=== PATIENT | male | born 1975 | race Caucasian/White ===

== ENCOUNTER 2016-03-25 16:21 | Emergency (ER) | payer SELFPAY ==
[2016-03-25] MEDS ORDERED: ASPIRIN 81 MG TABLET, CHEWABLE PO ONE (16:39)
--- NOTE | 2016-03-25 16:39 | ER Document Report ---
ED Medical Screen (RME) - General Stated Complaint: CHEST PAIN Time seen by provider: 16:37 Mode of Arrival: Wheelchair Information source: Patient Notes: 40-year-old male presents to ED for chest pain starting about 350 substernal chest pain states pain was in his left hand but not now denies shortness of breath. Denies diaphoresis, fever, cough. They she has had 5 MIs in the past states she has 5 cardiac stents none recently. Pain gets sharp at time and has a lot of pressure. I have greeted and performed a rapid initial assessment of this patient. A comprehensive ED assessment and evaluation of the patient, analysis of test results and completion of medical decision making process will be conducted by an additional ED providers.
[2016-03-25 17:26] LABS: ABSOLUTE BASOPHILS # (AUTO) 0.1 10^3/uL (0.0-0.2); ABSOLUTE EOSINOPHILS # (AUTO) 0.1 10^3/uL (0.0-0.6); ABSOLUTE LYMPHOCYTES (AUTO) 2.4 10^3/uL (0.5-4.7); ABSOLUTE MONOCYTES (AUTO) 0.8 10^3/uL (0.1-1.4); ABSOLUTE NEUT (AUTO) 8.5 10^3/uL (1.7-8.2); BASOPHILS % (AUTO) 0.7 % (0-2); HEMATOCRIT 49.5 % (37.9-51.0); HEMOGLOBIN 16.4 g/dL (13.5-17.0); HGB HCT DIFFERENCE -0.3; MEAN CORPUSCULAR HEMOGLOBIN 31.3 pg (27.0-33.4); MEAN CORPUSCULAR VOLUME 95 fl (80-97); MONOCYTES % (AUTO) 6.8 % (3-13); RED BLOOD COUNT 5.23 10^6/uL (4.35-5.55); RED CELL DISTRIBUTION WIDTH 13.1 % (11.5-14.0); SEGMENTED NEUTROPHILS % (AUTO) 71.5 % (42-78); WHITE BLOOD COUNT 11.9 10^3/uL (4.0-10.5)
[2016-03-25 17:51] LABS: ALANINE AMINOTRANSFERASE 41 U/L (21-72); ALBUMIN 4.6 g/dL (3.5-5.0); ALKALINE PHOSPHATASE 60 U/L (38-126); ANION GAP 13 (5-19); ASPARTATE AMINO TRANSFERASE 29 U/L (17-59); BILIRUBIN,TOTAL 0.8 mg/dL (0.2-1.3); BLOOD UREA NITROGEN 17 mg/dL (7-20); CALCIUM 9.3 mg/dL (8.4-10.2); CARBON DIOXIDE 24 mmol/L (22-30); CHLORIDE 103 mmol/L (98-107); CREATINE KINASE 135 U/L (55-170); CREATININE RESULT 0.97 mg/dL (0.52-1.25); GLUCOSE 88 mg/dL (75-110); MAGNESIUM 1.9 mg/dL (1.6-2.3); POTASSIUM 4.1 mmol/L (3.6-5.0); SODIUM 140.1 mmol/L (137-145); TOTAL PROTEIN 7.4 g/dL (6.3-8.2)
[2016-03-25 18:04] LABS: CREATINE KINASE MB 0.98 ng/mL (<4.55); TROPONIN I 0.018 ng/mL
--- NOTE | 2016-03-25 18:56 | ER Document Report ---
ED General - General Chief Complaint: Chest Pain Stated Complaint: CHEST PAIN Mode of Arrival: Wheelchair Notes: Patient is a 40-year-old male with past medical history of coronary artery disease with prior MIs, has had 5 stents placed in the past most recently 3 years ago who presents with an episode of chest pain that occurred just prior to arrival. States that for approximately one hour he had retrosternal chest pressure. Pain described as moderate. Nothing improved or worsen the pain. He did take nitroglycerin which he states did not affect the pain. It did spontaneously resolve while he was getting a chest x-ray here in the emergency department. Denies any associated nausea, vomiting or diaphoresis. States this feels similar to when he has had heart attacks in the past. Patient does move frequently for his job is in the [employer] for work. He denies any history of DVT or pulmonary embolus. No history of connective tissue disorder or aortic disease. TRAVEL OUTSIDE OF THE [place] IN LAST 30 DAYS: No - Related Data Allergies/Adverse Reactions: No Known Allergies Allergy (Verified 03/25/16 16:37) Past Medical History - General Information source: Patient - Social History Smoking Status: Current Every Day Smoker Chew tobacco use (# tins/day): No Frequency of alcohol use: None Drug Abuse: None Lives with: Alone Family History: Reviewed & Not Pertinent Patient has suicidal ideation: No Patient has homicidal ideation: No Renal/ Medical History: Denies: Hx Peritoneal Dialysis - Immunizations Hx Diphtheria, Pertussis, Tetanus Vaccination: No Review of Systems - Review of Systems Notes: Constitutional: Negative for fever. HENT: Negative for sore throat. Eyes: Negative for visual changes. Cardiovascular: Positive for chest pain. Respiratory: Negative for shortness of breath. Gastrointestinal: Negative for abdominal pain, vomiting or diarrhea. Genitourinary: Negative for dysuria. Musculoskeletal: Negative for back pain. Skin: Negative for rash. Neurological: Negative for headaches, weakness or numbness. 10 point ROS negative except as marked above and in HPI. Physical Exam - Vital signs Vitals: Temp Pulse Resp BP Pulse Ox 97.6 F 106 H 18 152/97 H 98 03/25/16 16:37 03/25/16 16:37 03/25/16 16:37 03/25/16 16:37 03/25/16 16:37 Interpretation: Hypertensive, Tachycardic Notes: PHYSICAL EXAMINATION: GENERAL: Well-appearing, well-nourished and in no acute distress. HEAD: Atraumatic, normocephalic. EYES: Pupils equal round and reactive to light, extraocular movements intact, sclera anicteric, conjunctiva are normal. ENT: nares patent, oropharynx clear without exudates. Moist mucous membranes. NECK: Normal range of motion, supple without lymphadenopathy LUNGS: Breath sounds clear to auscultation bilaterally and equal. No wheezes rales or rhonchi. HEART: Regular rate and rhythm without murmurs ABDOMEN: Soft, nontender, normoactive bowel sounds. No guarding, no rebound. No masses appreciated. EXTREMITIES: Normal range of motion, no pitting or edema. No cyanosis. NEUROLOGICAL: No focal neurological deficits. Moves all extremities spontaneously and on command. PSYCH: Normal mood, normal affect. SKIN: Warm, Dry, normal turgor, no rashes or lesions noted. Course - Re-evaluation Re-evalutation: 03/25/16 18:53 Presentation of chest pain in an otherwise well appearing patient. Low clinical suspicion for ACS given clinical history, exam, EKG without ST elevations or depressions, and negative initial troponin. HEART score less than or equal to 3. PE also seems unlikely given clinical history, absence of tachycardia or dyspnea at time of evaluation (HR at time of my assessment on monitor is 91). Patient is PERC criteria negative. CXR without evidence of pneumothorax or pneumonia. No widened mediastinum. Aortic dissection also seems unlikely given history, symmetric pulses, CXR, and vitals. Will plan for delta troponin and reassessment. Patient has been chest pain free for over 1 hour at this time. 03/25/16 22:12 Patient's delta troponin is up to 12. He remains chest pain free at this time. Repeat EKG remains without ST changes. [facility] has been contacted for transfer. Lovenox has been given. 03/25/16 22:50 Patient relates that chest pain. He has been accepted for transfer by Daryn Dickson by but they will not likely have a bed. I also contacted [facility] who states they will not have a bed tonight. I also contacted [facility] who likewise does not have any beds tonight. He remains chest pain free. 03/26/16 03:15 Patient remains chest pain-free. His third troponin has down trended to 10.8. He continues to be well in appearance, vitals within normal limits. Awaiting a bed at this time. - Vital Signs Vital signs: Temp Pulse Resp BP Pulse Ox 97.6 F 106 H 15 122/76 94 03/25/16 16:37 03/25/16 16:37 03/26/16 03:00 03/26/16 01:00 03/26/16 03:00 - Laboratory Result Diagrams: 03/25/16 16:55 03/25/16 16:55 Laboratory results interpreted by me: 03/25/16 16:55 WBC 11.9 H Absolute Neutrophils 8.5 H - Diagnostic Test Radiology reviewed: Image reviewed, Reports reviewed Radiology results interpreted by me: 03/25/16 18:55 Chest x-ray: No widened mediastinum or pneumothorax - EKG Interpretation by Me Additional EKG results interpreted by me: 03/25/16 18:55 Sinus tachycardia. Rate 102. No ST elevations or depressions. qTC 459. Critical Care Note - Critical Care Note Total time excluding time spent on procedures (mins): 35 Comments: Critical care time spent obtaining history from patient or surrogate, discussions with consultants, development of treatment plan with patient or surrogate, evaluation of patient's response to treatment, examination of patient , ordering and performing treatments and interventions, ordering and review of laboratory studies, re-evaluation of patient's condition, ordering and review of radiographic studies and review of old charts Discharge - Discharge Clinical Impression: Non-ST elevation (NSTEMI) myocardial infarction Condition: Fair Disposition: [facility]
--- NOTE | 2016-03-25 20:01 | EKG REPORT ---
SEVERITY:- OTHERWISE NORMAL ECG - SINUS TACHYCARDIA : Confirmed by: Lynette Garcia MD 25-Mar-2016 20:00:56
[2016-03-25] MEDS ORDERED: ENOXAPARIN SODIUM INJ 100 MG/1 ML DISP.SYRIN SUBCUT SCH (22:15)
--- NOTE | 2016-03-26 05:54 | ER Document Report ---
Doctor's Note Notes: 03/26/16 05:53 Patient resting comfortably with stable vital signs, denies chest pain or other complaints at the present time, pending transfer to tertiary care center for an NSTEMI, stable for transfer, we will continue to await bed assignment
[2016-03-26 07:43] VITALS: BP 142/104
--- NOTE | 2016-03-26 07:49 | ER Document Report ---
Doctor's Note Notes: 03/26/16 07:48 Transport has arrived to take the patient. He states he feels well at this time and has no pain. The monitor strip is normal. The vital signs at this time are normal. The patient will be leaving shortly.
--- NOTE | 2016-03-26 15:18 | EKG REPORT ---
SEVERITY:- BORDERLINE ECG - SINUS RHYTHM BORDERLINE T WAVE ABNORMALITIES : Confirmed by: Lynette Garcia MD 26-Mar-2016 15:18:15
--- NOTE | 2016-03-26 15:18 | EKG REPORT ---
SEVERITY:- BORDERLINE ECG - SINUS RHYTHM BORDERLINE T ABNORMALITIES, LATERAL LEADS : Confirmed by: Lynette Garcia MD 26-Mar-2016 15:18:08
== END 2016-03-26 08:06 | disposition short-term general hospital (02) ==
LOC: ER 16:21
DX: I21.4 Non-ST elevation (NSTEMI) myocardial infarction (principal); R07.9 Chest pain, unspecified; F17.200 Nicotine dependence, unspecified, uncomplicated
CPT/HCPCS: 36415; 71020; 80053; 82550; 82553; 83735; 84484; 85025; 93005; 93010; 99291